=== PATIENT | female | born 1970 | race Caucasian/White ===

== ENCOUNTER 2017-04-14 08:18 | Day surgery (SDC) | payer BC ==
[2017-04-14] VITALS (12 sets, daily range): BP systolic 90–136; BP diastolic 51–80; PULSE 60–80; RESP 11–19; Ht 167.6 cm; Wt 69.5 kg
[~2017-04-14] VITALS: Ht 167.6 cm; Wt 69.5 kg
[2017-04-14] MEDS ORDERED: BUPIVACAINE 0.25% (MPF) 30 ML INJ ONE (11:42)
[2017-04-14] MEDS ORDERED: PROPOFOL 20 ML ONE (11:53)
[2017-04-14] MEDS ORDERED: ROCURONIUM 50 MG INJ ONE (11:53)
[2017-04-14] MEDS ORDERED: MEPERIDINE 100 MG INJ ONE (11:53)
[2017-04-14] MEDS ORDERED: CEFAZOLIN 1 GM INJ ONE (11:53)
[2017-04-14] MEDS ORDERED: GLYCOPYRROLATE 0.4 MG INJ ONE ×2 (11:53→12:33)
[2017-04-14] MEDS ORDERED: LIDOCAINE 2% (SDV) 5 ML INJ ONE (11:53)
[2017-04-14] MEDS ORDERED: SUCCINYLCHOLINE CHLORIDE 100 MG/5 ML SYG IV ONE (11:53)
[2017-04-14] MEDS ORDERED: NEOSTIGMINE 3 MG/3 ML SYRINGE ONE (11:53)
[2017-04-14] MEDS ORDERED: ONDANSETRON 4 MG INJ ONE (11:54)
[2017-04-14] MEDS ORDERED: METOCLOPRAMIDE 10 MG INJ ONE (11:54)
[2017-04-14] MEDS ORDERED: ONDANSETRON 4 MG INJ IV PRN ×2 (12:00)
[2017-04-14] MEDS ORDERED: METOCLOPRAMIDE 10 MG INJ IV PRN ×2 (12:00)
[2017-04-14] MEDS ORDERED: hydrALAzine 20 MG INJ IV PRN ×2 (12:00)
[2017-04-14] MEDS ORDERED: morphine (1 MG/ML) 10ML SYRINGE IV PRN ×4 (12:00)
[2017-04-14] MEDS ORDERED: HYDROmorphONE (0.2 MG/ML) 10ML SYG IV PRN ×4 (12:00)
[2017-04-14] MEDS ORDERED: EPHEDrine SULFATE 50 MG/5 ML SYG IV PRN ×2 (12:00)
[2017-04-14] MEDS ORDERED: MIDAZOLAM 1 MG/ML 2 ML INJ IV PRN ×2 (12:00)
[2017-04-14] MEDS ORDERED: FENTAnyl 50 MCG/ML VIAL IV PRN ×4 (12:00)
[2017-04-14] MEDS ORDERED: MEPERIDINE 25 MG INJ IV PRN ×2 (12:00)
[2017-04-14] MEDS ORDERED: DIPHENHYDRAMINE 50 MG INJ IV PRN ×2 (12:00)
[2017-04-14] MEDS ORDERED: LABETALOL HCL 20MG INJ IV PRN ×2 (12:00)
--- NOTE | 2017-04-14 12:50 | OPR ---
Date/Time of Note Date/Time of Note DATE: 04/14/17 TIME: 12:49 Operative Report Procedure Date: April 14, 2017 Preoperative Diagnosis grade III internal hemorrhoids and external hemorrhoids Postoperative Diagnosis same Operation Performed internal and external hemorrhoidectomy x 2 rigid proctoscopy Surgeon: Citlali GILES Specimens LL and RP int and ext hemorrhoids Citlali GILES April 14, 2017 12:50
--- NOTE | 2017-04-14 13:17 | OPR ---
DATE OF OPERATION: 04/14/2017 INDICATION: This is a 46-year-old female with complex grade III internal hemorrhoids and external h emorrhoids. She requested surgical repair. Risks, alternatives, benefits, and personnel were discu ssed with the patient. Patient expressed understanding and consents to the operation. PREOPERATIVE DIAGNOSIS: Grade III internal and external hemorrhoids. POSTOPERATIVE DIAGNOSIS: Grade III internal and external hemorrhoids. OPERATION PERFORMED: 1. Complex internal and external hemorrhoidectomy x2. 2. Rigid proctoscopy. SURGEON: Jose Juan Fatima MD SPECIMEN: Right posterior and left lateral internal and external hemorrhoids. COMPLICATIONS: None. ANESTHESIA: General. PROCEDURE: The patient was taken to the OR and prepped and draped in usual sterile fashion. Surgic al timeout was performed. IV antibiotics were given. Rigid proctoscopy was performed. No evidence of any masses or lesions. Prep was poor. Attention was paid to the left lateral hemorrhoidal comp kylee. A [id number] 3-0 Vicryl suture was placed into the left lateral internal hemorrhoidal art tabatha. Internal and external hemorrhoidal component was then excised using a 15 blade and handheld Li gaSure. Attention was then paid to the right posterior component. This internal and external hemor rhoidal complex was first dealt with by initially placing a [id number] 3-0 Vicryl suture into t he internal hemorrhoidal artery. The internal and external hemorrhoidal complex was then excised us ing a 15 blade and handheld LigaSure. There was good hemostasis. Local anesthesia was injected to all sites. Dry dressings were applied. Dictated By: JOSE JUAN FATIMA MD SB/NTS Conf#: [id number] DID#: [id number] CC: JOSE JUAN FATIMA MD;*EndCC*
[2017-04-14] MEDS ORDERED: BISACODYL (EC) 5 MG TAB PO ONE (13:30)
[2017-04-14] MEDS ORDERED: HYDROCODONE/APAP (5/325) TAB PO ONE (13:30)
== END 2017-04-14 14:15 | disposition home or self-care (01) ==
LOC: SDS 08:18
PROVIDERS: ATTEND Surgery
DX: K64.2 Third degree hemorrhoids (principal)
CPT/HCPCS: 46260; 88304; J0690; J2175; J2405; J2710; J2765; J7999; Z7512; Z7610

== ENCOUNTER 2017-04-15 18:00 | Emergency (ER) | payer BC ==
[~2017-04-15] VITALS: Ht 170.2 cm; Wt 70.0 kg
[2017-04-15 18:03] VITALS: Ht 170.2 cm; Wt 70.0 kg
[2017-04-15] MEDS ORDERED: SODIUM CHLORIDE 0.9% 1L BAG IV* STA (20:20)
[2017-04-15] MEDS ORDERED: morphine 4 MG/ML VIAL IV STA (20:20)
[2017-04-15 20:59] LABS: ADD SCAN DIFF NO; BASOPHILS % 0.2 % (0.0-2.0); EOSINOPHILS % 0.2 % (0.0-7.0); HEMATOCRIT 37.1 % (37.0-47.0); HEMOGLOBIN 12.2 g/dl (12.0-16.0); LYMPHOCYTES # 3.1 10^3/ul (0.8-2.9); LYMPHOCYTES % 18.1 % (15.0-51.0); MEAN CORPUSCULAR HEMOGLOBIN 30.4 pg (29.0-33.0); MEAN CORPUSCULAR HGB CONC 32.9 g/dl (32.0-37.0); MEAN CORPUSCULAR VOLUME 92.5 fl (82.0-101.0); MEAN PLATELET VOLUME 10.1 fl (7.4-10.4); MONOCYTES % 5.8 % (0.0-11.0); NEUTROPHILS % 75.4 % (39.0-77.0); PLATELET COUNT 233 10^3/UL (140-415); RED BLOOD COUNT 4.01 10^6/ul (4.20-5.40); RED CELL DISTRIBUTION WIDTH 13.6 % (11.5-14.5); WHITE BLOOD COUNT 17.2 10^3/ul (4.8-10.8)
[2017-04-15 21:12] LABS: CHLORIDE 104 mmol/L (97-110)
[2017-04-15 21:13] LABS: ALBUMIN 3.8 g/dl (3.3-4.9); POTASSIUM 3.6 mmol/L (3.5-5.1); SODIUM 138 mmol/L (135-144)
[2017-04-15 21:15] LABS: INR 1.04; PROTIME 13.6 Sec (12.2-14.2); PT RATIO 1.1
[2017-04-15 21:16] LABS: ALANINE AMINOTRANSFERASE 41 IU/L (13-69); ALBUMIN/GLOBULIN RATIO 1.08; ALKALINE PHOSPHATASE 76 IU/L (42-121); ANION GAP 14 (8-16); ASPARTATE AMINO TRANSFERASE 35 IU/L (15-46); BILIRUBIN,INDIRECT 0.6 mg/dl (0-1.1); BILIRUBIN,TOTAL 0.6 mg/dl (0.2-1.3); BLOOD UREA NITROGEN 8 mg/dl (7-20); CARBON DIOXIDE 24 mmol/L (21-31); CREATININE 0.71 mg/dl (0.44-1.00); GLUCOSE 100 mg/dl (70-220); PARTIAL THROMBOPLASTIN TIME 28.9 Sec (25.0-35.0); TOTAL PROTEIN 7.3 g/dl (6.1-8.1)
[2017-04-15 21:37] LABS: TROPONIN-I < 0.012 ng/ml (0.00-0.12)
--- NOTE | 2017-04-15 21:42 | RADRPT ---
PROCEDURE: XR Chest. CLINICAL INDICATION: Possible sepsis. TECHNIQUE: Single frontal view of the chest. COMPARISON: None. FINDINGS: The cardiomediastinal silhouette is within normal limits. The lungs are clear. No signs of pleural f luid or pneumothorax are seen. The osseous structures and soft tissues are unremarkable. IMPRESSION: No evidence for active cardiopulmonary disease. RPTAT: [facility] Physician Shilpi Date Time Electronically viewed and signed by Physician Shilpi on 04/15/2017 21:42 RS/
[2017-04-16] MEDS ORDERED: DICLOFENAC SODIUM 37.5 MG/ML VIAL IV STA (00:37)
[2017-04-16] MEDS ORDERED: POLY17PO6 PO (01:55)
[2017-04-16] MEDS ORDERED: MAGN296S40 PO (01:55)
[2017-04-16] MEDS ORDERED: HYDR-906 PO (01:55)
[2017-04-16] MEDS ORDERED: NAPR-688 PO (01:55)
[2017-04-16 02:04] LABS: ADD UMIC YES; URINE BILIRUBIN (Dip) NEGATIVE (NEGATIVE); URINE BLOOD (Dip) NEGATIVE (NEGATIVE); URINE COLOR LT. YELLOW (YELLOW); URINE GLUCOSE (Dip) NEGATIVE (NEGATIVE); URINE KETONES (Dip) NEGATIVE (NEGATIVE); URINE LEUKOCYTE ESTERASE (Dip) 1+ (NEGATIVE); URINE NITRITE (Dip) NEGATIVE (NEGATIVE); URINE TOTAL PROTEIN (Dip) NEGATIVE (NEGATIVE); URINE UROBILINOGEN (Dip) 0.2 E.U./dL (0.1-1.0)
[2017-04-16 02:43] LABS: BACTERIA,URINE MANY; SQUAMOUS EPITHELIAL CELL,UR MANY; URINE RBCS 0-2 /HPF (0)
[2017-04-16] MEDS ORDERED: CIPR500T4 PO (02:45)
--- NOTE | 2017-04-16 02:52 | ERD ---
ER Documentation Chief Complaint Date/Time DATE: 04/16/17 TIME: 02:46 Chief Complaint PT HAD HEMORRHOIDECTOMY YESTERDAY, HAVING FEVER NOW HPI This 46-year-old female presents to the emergency room with a fever status post hemorrhoidectomy. Her only pain is near the hemorrhoid surgery as well as in her upper legs. She has had no bleeding or discharge from the area. Is taking Barnes at home for the pain which works fairly well. However she has not had a bowel movement for the last couple days. This is causing her lower abdominal pressure and discomfort. She denies cough. Denies generalized weakness. ROS All systems reviewed and are negative except as per history of present illness. Medications Home Meds Active Scripts Ciprofloxacin Hcl* (Ciprofloxacin Hcl*) 500 Mg Tablet, 500 MG PO BID for 5 Days , TAB Prov:GAEL HERNÁNDEZ 04/16/17 Hydrocodone/Acetaminophen (Barnes 5-325 Tablet) 1 Each Tablet, 1 EACH PO Q6, #14 TAB Prov:GAEL HERNÁNDEZ 04/16/17 Magnesium Citrate* (Magnesium Citrate*) 296 Ml Solution, 296 ML PO ONCE, #1 BOTTLE Prov:GAEL HERNÁNDEZ 04/16/17 Polyethylene Glycol* (Miralax*) 17 Gm Powd.pack, 17 GM PO DAILY, #7 Prov:GAEL HERNÁNDEZ 04/16/17 Naproxen* (Naproxen*) 500 Mg Tablet, 500 MG PO BID Y for PAIN, #20 TAB Prov:GAEL HERNÁNDEZ DO 04/16/17 Allergies Allergies: Coded Allergies: No Known Allergy (Unverified , 04/14/17) PMhx/Soc History of Surgery: Yes (TUBAL LIGATION; HEMORRHOID SX 04/14/17) Anesthesia Reaction: No Hx Neurological Disorder: No Hx Respiratory Disorders: No Hx Cardiac Disorders: No Hx Psychiatric Problems: No Hx Miscellaneous Medical Probl: No Hx Alcohol Use: No Hx Substance Use: No Hx Tobacco Use: No Smoking Status: Never smoker Physical Exam Vitals Vital Signs Date Time Temp Pulse Resp B/P Pulse Ox O2 Delivery O2 Flow Rate FiO2 04/15/17 22:27 99.1 92 16 111/60 98 Room Air 04/15/17 18:03 101.8 112 23 104/60 98 Physical Exam Const: [] No distress Head: Atraumatic Eyes: Normal Conjunctiva ENT: Normal External Ears, Nose and Mouth. Neck: Full range of motion..~ No meningismus. Resp: Clear to auscultation bilaterally Cardio: Mild tachycardia., no murmurs Abd: Soft, non tender, non distended. Normal bowel sounds Rectal exam: Small external hemorrhoid on left of anus, small 1 cm incision site with no sutures that has no discharge is clean dry and intact. There is no erythema surrounding the site no calor no inflammation. Skin: No petechiae or rashes Back: No midline or flank tenderness Ext: No cyanosis, or edema Neur: Awake and alert Psych: Normal Mood and Affect Result Diagram: 04/15/17204404/15/172044 Results 24 hrs Laboratory Tests Test 04/15/17 20:32 04/15/17 20:45 04/15/17 21:50 04/16/17 01:15 Urine Color LT. YELLOW Urine Clarity CLEAR Urine pH 6.0 Urine Specific [place] 1.020 Urine Ketones NEGATIVE Urine Nitrite NEGATIVE Urine Bilirubin NEGATIVE Urine Urobilinogen 0.2 E.U./dL Urine Leukocyte Esterase 1+ Urine Microscopic RBC 0-2/HPF Urine Microscopic WBC 25-50/HPF Urine Squamous Epithelial Cells MANY Urine Bacteria MANY Urine Hemoglobin NEGATIVE Urine Glucose NEGATIVE% Urine Total Protein NEGATIVE White Blood Count 17.210^3/ul Red Blood Count 4.0110^6/ul Hemoglobin 12.2g/dl Hematocrit 37.1% Mean Corpuscular Volume 92.5fl Mean Corpuscular Hemoglobin 30.4pg Mean Corpuscular Hemoglobin Concent 32.9g/dl Red Cell Distribution Width 13.6% Platelet Count 91283^3/UL Mean Platelet Volume 10.1fl Neutrophils % 75.4% Lymphocytes % 18.1% Monocytes % 5.8% Eosinophils % 0.2% Basophils % 0.2% Nucleated Red Blood Cells % 0.0/100WBC Neutrophils # 13.010^3/ul Lymphocytes # 3.110^3/ul Monocytes # 1.010^3/ul Eosinophils # 0.010^3/ul Basophils # 0.010^3/ul Nucleated Red Blood Cells # 0.010^3/ul Prothrombin Time 13.6Sec Prothrombin Time Ratio 1.1 INR International Normalized Ratio 1.04 Activated Partial Thromboplast Time 28.9Sec Sodium Level 138mmol/L Potassium Level 3.6mmol/L Chloride Level 104mmol/L Carbon Dioxide Level 24mmol/L Anion Gap 14 Blood Urea Nitrogen 8mg/dl Creatinine 0.71mg/dl Glucose Level 100mg/dl Lactic Acid Level 1.2mmol/L 0.8mmol/L 0.8mmol/L Calcium Level 9.0mg/dl Total Bilirubin 0.6mg/dl Direct Bilirubin 0.00mg/dl Indirect Bilirubin 0.6mg/dl Aspartate Amino Transf (AST/SGOT) 35IU/L Alanine Aminotransferase (ALT/SGPT) 41IU/L Alkaline Phosphatase 76IU/L Troponin I < 0.012ng/ml Total Protein 7.3g/dl Albumin 3.8g/dl Globulin 3.50g/dl Albumin/Globulin Ratio 1.08 Current Medications Medications (Trade) Dose Ordered Sig/Ayaka Route PRN Reason Start Time Stop Time Status Last Admin Dose Admin Sodium Chloride (NS) 2,170 ml BOLUS OVER 2 HOURS STAT IV* 04/15/17 20:20 04/15/17 20:23 DC 04/15/17 20:40 Morphine Sulfate (morphine) 4 mg ONCE STAT IV 04/15/17 20:20 04/15/17 20:23 DC 04/15/17 20:42 Diclofenac Sodium (Dyloject) 37.5 mg ONCE STAT IV 04/16/17 00:37 04/16/17 00:38 DC 04/16/17 01:04 Procedures/MDM Constipation and urinary tract infection. Initially patient was febrile and because of recent postop septic workup was performed. Hemorrhoidectomy site looks excellent and is hard to tell that surgery was even performed there. Patient was given IV hydration normal saline. Patient feels well and does not want to be intubated because she feels otherwise fine. She does have an elevated white blood cell count with no other abnormal labs. Positive leukocyte esterase. Going to discharge with a bowel regimen for constipation especially as the patient is taking narcotics. I am giving her Cipro 5 days for the urinary tract infection. Also discharging with MiraLAX, magnesium citrate, naproxen and a few Barnes pills. Primary care follow-up and follow-up with surgeon in the next couple of days. Return precautions to the ER given. EKG interpretation: Normal sinus rhythm, normal axis, no ST or T-wave changes concerning for acute ischemia pvc monitor interpretation: Normal sinus rhythm without arrhythmia Chest x-ray interpretation: No acute process, I see no infiltrate, no widened mediastinum, no pneumothorax, no fractures Departure Diagnosis: Primary Impression: Constipation Additional Impressions: Postoperative pain UTI (urinary tract infection) Leukocytosis Condition: Stable Patient Instructions: Understanding Urinary Tract Infections (UTIs), Constipation (Adult), Post Op Wound Check, Pain Additional Instructions: Call your primary care doctor TOMORROW for an appointment during the next 2-3 days.See the doctor sooner or return here if your condition worsens before your appointment time. GAEL HERNÁNDEZ DO April 16, 2017 02:52
[2017-04-16 03:15] VITALS: BP 106/63; PULSE 76; RESP 16; TEMP 98.3
== END 2017-04-16 03:16 | disposition home or self-care (01) ==
LOC: FTE 18:00
DX: K59.00 Constipation, unspecified (principal); G89.18 Other acute postprocedural pain; N39.0 Urinary tract infection, site not specified; D72.829 Elevated white blood cell count, unspecified; R10.30 Lower abdominal pain, unspecified
CPT/HCPCS: 36415; 71010; 80053; 81001; 83605; 84484; 85025; 85610; 85730; 87040; 93005; 96374; 96375; 99285; J2270; J7030; Z7610; 81003; 87086